=== PATIENT | male | born 1950 | race Caucasian/White ===

== ENCOUNTER 2024-08-25 13:49 | Emergency (ER) | payer OTHER ==
[~2024-08-25] VITALS: Ht 190.5 cm; Wt 103.4 kg
[2024-08-25] MEDS: ketOROlac 30MG VIAL (30MG/ML) IVP ONE (15:18)
[2024-08-25] MEDS: 0.9%NACL 1000ML 1,000 ML IV ONE (15:18)
[2024-08-25 15:37] LABS: BASOPHILS # (AUTO) 0.03 K/uL (0.00-0.20); BASOPHILS % (AUTO) 0.2 % (0.0-5.0); HEMATOCRIT 46.3 % (42-54); IMMATURE GRANULOCYTE ABSOLUTE 0.08 K/uL (0-1); LYMPHOCYTES # (AUTO) 0.9 K/uL (1.0-4.8); MEAN CORPUSCULAR HEMOGLOBIN 32.1 pg (27.0-33.0); MEAN CORPUSCULAR HGB CONC 34.8 g/dL (32.0-36.0); MEAN CORPUSCULAR VOLUME 92.4 fL (79-99); MONOCYTES # (AUTO) 1.4 K/uL (0.1-1.0); MONOCYTES % (AUTO) 9.4 % (3.0-13.0); NEUTROPHILS # (AUTO) 12.7 K/uL (1.8-7.7); NEUTROPHILS % (AUTO) 83.9 % (40.0-77.0); PLATELET COUNT (AUTO) 147 K/uL (130-400); RED BLOOD CELL COUNT(AUTO) 5.01 MIL/uL (4.50-6.20); RED CELL DISTRIBUTION WIDTH 12.4 % (11.0-15.5); WHITE BLOOD COUNT (AUTO) 15.1 K/uL (4.8-10.8)
[2024-08-25 15:46] LABS: POTASSIUM 3.5 mmol/L (3.5-5.1)
[2024-08-25] MEDS: CEFTRIAXONE 2GM VIAL IVPB ONE (16:04)
[2024-08-25 16:35] LABS: APPEARANCE,URINE CLEAR (CLEAR); BILIRUBIN,URINE NEGATIVE (NEGATIVE); COLOR,URINE LIGHT-YELLOW (YELLOW); GLUCOSE, URINE (UA) >=1000 mg/dL (NEGATIVE); KETONES,URINE 60 mg/dL (NEGATIVE); LEUKOCYTE ESTERASE ,URINE 250 Leu/uL (NEGATIVE); NITRATE,URINE NEGATIVE (NEGATIVE); OCCULT BLOOD,URINE SMALL (NEGATIVE); PROTEIN,URINE NEGATIVE (NEGATIVE); UROBILINOGEN,URINE 0.2 mg/dL (0.2-1.0)
[2024-08-25 16:36] LABS: ADD UA MICROSCOPIC YES
[2024-08-25 16:40] LABS: BACTERIA,URINE None Seen /HPF (None Seen); WBC,URINE 26-50 /HPF (0-1)
[2024-08-25 16:41] LABS: MUCUS,URINE Rare LPF (None Seen); SQUAMOUS EPITHELIAL CELL,UR Rare /HPF (0-2)
[2024-08-25] MEDS ORDERED: AMOX1TAB16 PO (16:53)
[2024-08-25] MEDS ORDERED: IBUP-2071 PO (16:53)
[2024-08-25] MEDS ORDERED: PHEN-776 PO (16:53)
[2024-08-25 17:23] VITALS: BP 144/70; PULSE 80; RESP 16; TEMP 99.6; O2SAT 97
== END 2024-08-25 17:24 | disposition home or self-care (01) ==
LOC: EDH 13:49
DX: N30.01 Acute cystitis with hematuria (principal); N20.0 Calculus of kidney; N23 Unspecified renal colic; E11.65 Type 2 diabetes mellitus with hyperglycemia; I10 Essential (primary) hypertension; E78.00 Pure hypercholesterolemia, unspecified; Z90.49 Acquired absence of other specified parts of digestive tract
CPT/HCPCS: 99285; 74176; 96365; 96361; 96375; 80048; 85025; 87086 ×2; 87186; 81001; 36415; J7030; J0696; J1885

== ENCOUNTER 2024-09-19 10:41 | Emergency (ER) | payer OTHER, MEDICARE ==
[~2024-09-19] VITALS: Ht 190.5 cm; Wt 100.2 kg
[~2024-09-19 10:41] MED LIST: AMOX1TAB16 PO; IBUP-2071 PO; PHEN-776 PO
--- NOTE | 2024-09-19 10:48 | ERN ---
General Stated Complaint: [facility] [place] [facility] Time Seen by MD: 10:42 Time Seen by Midlevel: 10:42 Source: patient History of Present Illness Initial Comments Patient is a 74-year-old male presenting to the emergency department with dysuria/hematuria. [place] for possible [place] after his culture came back positivbe for E coli. Patient was seen in our emergency department earlier this month where [place] [id number] and a urinary tract infection. He was given antibiotics in the emergency department and sent home with Augmentin. He followed up with his primary care doctor because his symptoms did not resolve. He was placed on Macrobid and discharged home. His culture came back positive for E coli yesterday so patient was sent here for further evaluation. On arrival patient reports having right flank pain. He denies any fever chills, or any other symptoms at this time. Allergies: Coded Allergies: No Known Allergies (Unverified Allergy, Unknown, 08/25/24) Home Meds Active Scripts Ibuprofen (Ibuprofen) 800 Mg Tablet, 800 MG PO Q6H PRN for PAIN, #30 TAB Prov:JIN OH NP 08/25/24 Phenazopyridine HCl (Pyridium) 200 Mg Tablet, 200 MG PO TID for painful urination for 3 Days, #9 TAB 0 Refills Prov:JIN OH NP 08/25/24 Amoxicillin/Potassium Clav (Amox Tr-K Clv 875-125 mg Tab) 875 Mg-125 Mg Tablet, 1 EACH PO BID for 7 Days, #14 TAB 0 Refills Prov:JIN OH NP 08/25/24 Reported Medications Carboxymethyl/Glycerin/Poly80 (Refresh Optive Advanced Drops) 0.5 %-1 %-0.5 % Drops, 1 DROP OP QID, #120 ML 0 Refills 09/19/24 Rosuvastatin Calcium (Rosuvastatin Calcium) 10 Mg Tablet, 10 MG PO DAILY, TAB 09/19/24 Empagliflozin (Jardiance) 25 Mg Tablet, 1 TAB PO DAILY for 30 Days, #30 TAB 0 Refills 09/19/24 Losartan Potassium (Losartan Potassium) 50 Mg Tablet, 1 TAB PO DAILY for 30 Days, #30 TAB 0 Refills 09/19/24 Past Medical History Past Medical History: Diabetes-Type II, High Cholesterol, Hypertension, Renal Disese Past Surgical History: Appendectomy ROS Dictation CONSTITUTIONAL: Negative except for HPI HEAD/FACE: Negative except for HPI EENT: Negative except for HPI RESPIRATORY: Negative except for HPI GASTROINTESTINAL/ABDOMINAL: Negative except for HPI GENITOURINARY: Negative except for HPI MUSCULOSKELETAL: Negative except for HPI INTEGUMENTARY: Negative except for HPI NEUROLOGICAL/PSYCH: Negative except for HPI HEMATOLOGIC/LYMPHATIC: Negative except for HPI All Systems Negative, Except as noted above. 13 point review of systems assessed and all negative except for above. Physical Exam Physical Exam Dictation Vital Signs reviewed General Appearance: Alert, oriented x 3, no acute distress, well developed, nourished. Head and Face: non-traumatic. Eyes: PERRL, pink conjunctivas, eyelid no trauma, anterior chamber with arcus senilis. Ears: Pinnas intact and no signs of trauma or erythema ear canals clear and no discharge TM no erythema Nose: No discharge, no bleeding. Oropharynx: Mouth normal, tongue pink, pharynx clear,no erythema, tonsils no exudates, no abscesses noted, mucous membrane moist Neck: Supple, non-tender, no thyromegaly, no masses, no JVD, no bruits Breast:Deferred Chest:No tenderness, no crepitus, no paradoxical movement, no retractions Lungs:Clear, well-ventilated, symmetric, no rales, no wheezing, no rhonchi, no stridor, good breath sounds bilaterally Heart: Regular rate, regular rhythm, no murmur, no gallops Vascular: no peripheral edema, Abdomen: Soft, positive bowel sounds, nondistended, no guarding, Right CVA tenderness, no rebound, no masses no hepatomegaly, no splenomegaly, no Bustillo's sign, no hernias. Rectal: Deferred Genital: Deferred Neurological: Normal speech, motor function intact, sensory function intact Musculoskeletal: Neck nontender, full range of motion, back nontender, full range of motion, Extremities: nontender, full range of motion Skin: Color pink, dry, no turgor, no rash, no lacerations, no abrasions, no contusions. Lymphatic: Deferred Results Laboratory and Microbiology Lab and Micro Result Laboratory Tests Test 09/19/24 10:59 09/19/24 11:01 White Blood Count 7.8 K/uL (4.8-10.8) Red Blood Count 4.59 MIL/uL (4.50-6.20) Hemoglobin 14.4 g/dL (14.0-18.0) Hematocrit 42.0 % (42-54) Mean Corpuscular Volume 91.5 fL (79-99) Mean Corpuscular Hemoglobin 31.4 pg (27.0-33.0) Mean Corpuscular Hemoglobin Concent 34.3 g/dL (32.0-36.0) Red Cell Distribution Width 12.4 % (11.0-15.5) Platelet Count 181 K/uL (130-400) Mean Platelet Volume 11.2 fL (7.5-10.5) H Immature Granulocyte % (Auto) 0.6 % (0-1) Neutrophils (%) (Auto) 79.9 % (40.0-77.0) H Lymphocytes (%) (Auto) 6.1 % (21.0-51.0) L Monocytes (%) (Auto) 7.5 % (3.0-13.0) Eosinophils (%) (Auto) 5.5 % (0.0-8.0) Basophils (%) (Auto) 0.4 % (0.0-5.0) Neutrophils # (Auto) 6.3 K/uL (1.8-7.7) Lymphocytes # (Auto) 0.5 K/uL (1.0-4.8) L Monocytes # (Auto) 0.6 K/uL (0.1-1.0) Eosinophils # (Auto) 0.43 K/uL (0.00-0.70) Basophils # (Auto) 0.03 K/uL (0.00-0.20) Absolute Immature Granulocyte (auto 0.05 K/uL (0-1) Nucleated Red Blood Cells 0.0 % (0.0-0.19) White Cell Morphology Comment See comments Sodium Level 132 mmol/L (136-145) L Potassium Level 3.8 mmol/L (3.5-5.1) Chloride Level 98 mmol/L (101-111) L Carbon Dioxide Level 26 mmol/L (21-32) Blood Urea Nitrogen 14 mg/dL (7-18) Creatinine 1.0 mg/dL (0.5-1.3) Glomerular Filtration Rate Calc 78 mL/min (>90) Random Glucose 208 mg/dL (70-105) H Lactic Acid Level 1.8 mmol/L (0.8-2.5) Total Calcium 8.9 mg/dL (8.5-10.1) Procalcitonin 0.25 ng/mL (0.05-0.5) Urine Color YELLOW (YELLOW) Urine Appearance CLEAR (CLEAR) Urine pH 5.5 (5.0-8.0) Urine Specific [place] 1.022 (1.001-1.031) Urine Protein 10 mg/dL (NEGATIVE) H Urine Glucose (UA) >=1000 mg/dL (NEGATIVE) H Urine Ketones 5 mg/dL (NEGATIVE) H Urine Occult Blood MODERATE (NEGATIVE) H Urine Nitrate NEGATIVE (NEGATIVE) Urine Bilirubin NEGATIVE mg/dL (NEGATIVE) Urine Urobilinogen 0.2 mg/dL (0.2-1.0) Urine Leukocyte Esterase NEGATIVE Mary/uL Urine RBC 6-10 /HPF (0-1) H Urine WBC 11-25 /HPF (0-1) H Urine Bacteria None /HPF (None Seen) Labs Reviewed?: Yes MDM MDM: Patient is a 74-year-old male presenting to the emergency department with dysuria/hematuria. [place] for [place] after his culture came back positivbe for E coli. Patient was seen in our emergency department earlier this month where [place] [id number] and a urinary tract infection. He was given antibiotics in the emergency department and sent home with Augmentin. He followed up with his primary care doctor because his symptoms did not resolve. He was placed on Macrobid and discharged home. His culture came back positive for E coli yesterday so patient was sent here for further evaluation. On arrival patient reports having right flank pain. He denies any fever chills, or any other symptoms at this time. On physical examination patient is in no acute distress. He does have right CVA tenderness. His abdominal examination is benign. There was no rebound or guarding. CBC does not show any leukocytosis. His chemistries are stable. His urinalysis shows moderate occult blood along with positive WBCs and urine RBCs. A CT scan of the abdomen pelvis without contrast was ordered which reveals bilateral kidney stones largest on the left measuring 7 x 15 mm, there was no evidence of obstruction. Otherwise CT abdomen and pelvis are unremarkable. The kidney stones are in a middle pole calyx bilaterally. These are nonobstructing. There was no evidence of pyelonephritis. The original plan was to admit the patient to our facility for IV antibiotics. The patient was started on meropenem. The case was discussed with the hospitalist on-call who states he does not feel comfortable admitting this patient is since we do not have Urology Service the remainder of the month. I do not believe patient needs emergent intervention for his bilateral nonobstructing renal stones. Transfer was initiated so patient can be sent to a hospital with higher level of care that has Urology. The case was discussed with ER doctor over at [facility] who agrees to accept the patient. Differential diagnosis: Complicated urinary tract infection, pyelonephritis, renal stone Rationale: Tests considered and ordered secondary to shared decision making include: Previous outside records reviewed: Old ER visits. Risk of complication and/or morbidity or mortality of patient management: None Medications-Per medication reconciliation Need for hospitalization: Patient does meet criteria for hospitalization. Need for emergency major/minor surgery: No There are no social concerns with this patient. Prescription drug management Prescriptions will include symptomatic care Patient's prior external medical records from other ER visits were reviewed by me as indicated. Prior testing and results from previous visits were reviewed. Prior tests were taken into account with medical decision making and resource utilization, independent historian/historians were used to obtain complete medical history. I independently interpreted the test that were performed, results were reviewed by me and considered findings on radiology if ordered. Medical management and examination interpretation discussions were had by me with other qualified healthcare professionals as indicated for the patient's care. ED Course Orders Procedure Category Date Status Time 12 Lead Ekg Tracing- EKG 09/19/24 Resulted Technical 10:44 Cbc With Differential LAB 09/19/24 Complete 10:44 Basic Metabolic Panel LAB 09/19/24 Complete 10:44 Lactic Acid LAB 09/19/24 Complete 10:44 Procalcitonin LAB 09/19/24 Complete 10:44 Urinalysis Profile LAB 09/19/24 Complete 10:44 Blood Cult ADAIR 09/19/24 In Process 10:44 0.9%Nacl 1000ml (Ns PHA 09/19/24 Complete 1000ml) 11:30 Meropenem (Merrem) PHA 09/19/24 Complete 12:00 Compound Iv Misc PHA 09/19/24 Complete (Compound Iv Misc) 12:00 Meropenem (Merrem) PHA 09/19/24 Complete 11:49 Culture Urine ADAIR 09/19/24 Complete 12:28 Ct Abdomen/Pelvis W/O CT 09/19/24 Resulted Contrast 13:04 Current Medications Medications (Trade) Dose Ordered Sig/Ros Route PRN Reason Start Time Stop Time Status Last Admin Dose Admin Meropenem (Merrem) 1 gm STK-MED ONCE .ROUTE 09/19/24 11:49 09/19/24 11:50 DC Meropenem 1 gm/ Sodium Chloride 100 ml @ 33.333 mls/ hr Q8H IVPB 09/19/24 12:00 09/19/24 17:57 DC 09/19/24 11:51 Sodium Chloride 1,000 ml @ 0 mls/hr ONCE ONCE IV 09/19/24 11:30 09/19/24 11:31 DC 09/19/24 11:14 Vital Signs Date Time Temp Pulse Resp B/P (MAP) Pulse Ox O2 Delivery O2 Flow Rate FiO2 09/19/24 16:15 82 14 144/75 95 Room Air* 0 21 09/19/24 12:10 93 12 130/66 95 Room Air* 0 21 09/19/24 10:49 98.1 70 16 121/71 98 Room Air 0 09/19/24 10:49 98.1 80 16 120/71 100 Room Air* 0 21 [place] [address] IMAGING REPORT Signed PATIENT: KP KNOTT MR#: [id number] : 1950 SEX: M AGE: 74 LOCATION: [facility] ORDER 1305 STATUS: REG ER REPORT#: [id number] SERVICE 1304 REASON: dysuria/hematuria ORDERING PHYSICIAN: JANIE RODRIGUEZ PROCEDURE: ABD PEL WO - CT ABDOMEN/PELVIS W/O CONTRAST CT ABDOMEN/PELVIS W/O CONTRAST REASON: dysuria/hematuria COMPARISON: None. FINDINGS: Lung bases are clear. There are no focal liver lesions. The liver does not appear enlarged.. Spleen and pancreas appear unremarkable. The gallbladder appears normal as well. There is a 4 mm stone middle pole calyx right kidney without obstruction. There is a 7 x 15 mm stone in a middle pole calyx on the left. There is no mass, hydronephrosis or ureteral calculus. Bowel loops appear unremarkable. This includes normal appearance of the appendix There is no evidence of free fluid or intraperitoneal air. There are no focal fluid collections. Aorta and retroperitoneum appear normal as do pelvic soft tissue structures. The anterior abdominal wall is intact. Osseous structures appear unremarkable. IMPRESSION: 1. Bilateral kidney stones, largest is on the left measuring 7 x 15 mm, there is no evidence of obstruction. 2. Otherwise unremarkable CT abdomen and pelvis. CT was performed with one or more following dose reduction techniques: automated exposure control, adjustment of the mA and kv according to patient's size, or use of a iterative reconstruction technique. DICTATED BY: NICOLETTE BOBBY MD DATE: 09/19/24 1331 ELECTRONICALLY SIGNED BY: NICOLETTE BOBBY MD DATE: 09/19/24 1335 DX & DISP Disposition: Transfer Departure Impression: Primary Impression: Complicated urinary tract infection Additional Impressions: Hematuria, ESBL (extended spectrum beta-lactamase) producing bacteria infection Condition: Stable Referrals: SELF,REFERRAL (PCP) I have reviewed the case, and I agree with, Diagnosis and Plan I performed the substantive portion of the visit. I have reviewed and personally made and approve the management plan that is documented in the note by myself or the SHAHID. I acknowledge for responsibility for the patient's management plan. JANIE RODRIGUEZ Sep 19, 2024 10:48 MARCE BASURTO DO Sep 21, 2024 09:09
[2024-09-19 10:49] VITALS: TEMP 98.1
--- NOTE | 2024-09-19 11:04 | EKG ---
[facility] Test Date: 2024-09-19 Test Time: 10:51:38 Pat Name: KP KNOTT Department: ED Room: Gender: M Boiler Helper: [id number] : 1950 Requested By: JANIE RODRGIUEZ Order Number: [id number] Reading MD: Aiden Sams Measurements Intervals [place] Rate: 103 P: 72 ND: 165 QRS: 47 QRSD: 94 T: 30 QT: 328 QTc: 431 Interpretive Statements Sinus tachycardia No previous ECG available for comparison Electronically Signed On 09-19-2024 15:16:02 DOLL DRESSER by Aiden Sams Please click the below link to view image of tracing.
[2024-09-19] MEDS: 0.9%NACL 1000ML 1,000 ML IV ONE (11:14)
[2024-09-19 11:25] LABS: POTASSIUM 3.8 mmol/L (3.5-5.1)
[2024-09-19 11:40] LABS: BASOPHILS # (AUTO) 0.03 K/uL (0.00-0.20); BASOPHILS % (AUTO) 0.4 % (0.0-5.0); EOSINOPHILS # (AUTO) 0.43 K/uL (0.00-0.70); EOSINOPHILS % (AUTO) 5.5 % (0.0-8.0); IMMATURE GRANULOCYTE ABSOLUTE 0.05 K/uL (0-1); LYMPHOCYTES # (AUTO) 0.5 K/uL (1.0-4.8); LYMPHOCYTES % (AUTO) 6.1 % (21.0-51.0); MEAN CORPUSCULAR HEMOGLOBIN 31.4 pg (27.0-33.0); MEAN CORPUSCULAR HGB CONC 34.3 g/dL (32.0-36.0); MEAN CORPUSCULAR VOLUME 91.5 fL (79-99); MONOCYTES # (AUTO) 0.6 K/uL (0.1-1.0); MONOCYTES % (AUTO) 7.5 % (3.0-13.0); NEUTROPHILS # (AUTO) 6.3 K/uL (1.8-7.7); NEUTROPHILS % (AUTO) 79.9 % (40.0-77.0); PLATELET COUNT (AUTO) 181 K/uL (130-400); RED BLOOD CELL COUNT(AUTO) 4.59 MIL/uL (4.50-6.20); RED CELL DISTRIBUTION WIDTH 12.4 % (11.0-15.5); WHITE BLOOD COUNT (AUTO) 7.8 K/uL (4.8-10.8)
[2024-09-19] MEDS: MEROPENEM 1 GM in 0.9%NACL 100ML 100 ML IVPB SCH (11:51)
[2024-09-19] MEDS: MEROPENEM 1 GM VIAL ONE (11:51)
[2024-09-19] MEDS ORDERED: COMPOUND IV MISC 1 EACH IVSOLN MISC PRN (12:00)
[2024-09-19 12:23] LABS: APPEARANCE,URINE CLEAR (CLEAR); BILIRUBIN,URINE NEGATIVE (NEGATIVE); COLOR,URINE YELLOW (YELLOW); GLUCOSE, URINE (UA) >=1000 mg/dL (NEGATIVE); KETONES,URINE 5 mg/dL (NEGATIVE); LEUKOCYTE ESTERASE ,URINE NEGATIVE Leu/uL (NEGATIVE); NITRATE,URINE NEGATIVE (NEGATIVE); OCCULT BLOOD,URINE MODERATE (NEGATIVE); PH,URINE 5.5 (5.0-8.0); PROTEIN,URINE 10 mg/dL (NEGATIVE); UROBILINOGEN,URINE 0.2 mg/dL (0.2-1.0)
[2024-09-19 12:25] LABS: ADD UA MICROSCOPIC YES
[2024-09-19 12:28] LABS: MUCUS,URINE RARE LPF (None Seen)
--- NOTE | 2024-09-19 12:48 | NUR ---
INFECTIOUS DISEASE CONSULT: DR LIVINGSTON MADE AWARE OF CONSULT
[2024-09-19] MEDS ORDERED: CARB10DR OP (13:07)
[2024-09-19] MEDS ORDERED: EMPA25TA PO (13:07)
[2024-09-19] MEDS ORDERED: ROSU10TA72 PO (13:07)
[2024-09-19] MEDS ORDERED: LOSA50TA64 PO (13:07)
--- NOTE | 2024-09-19 13:35 | HMCIMG ---
CT ABDOMEN/PELVIS W/O CONTRAST REASON: dysuria/hematuria COMPARISON: None. FINDINGS: Lung bases are clear. There are no focal liver lesions. The liver does not appear enlarged.. Spleen and pancreas appear unremarkable. The gallbladder appears normal as well. There is a 4 mm stone middle pole calyx right kidney without obstruction. There is a 7 x 15 mm stone in a middle pole calyx on the left. There is no mass, hydronephrosis or ureteral calculus. Bowel loops appear unremarkable. This includes normal appearance of the appendix There is no evidence of free fluid or intraperitoneal air. There are no focal fluid collections. Aorta and retroperitoneum appear normal as do pelvic soft tissue structures. The anterior abdominal wall is intact. Osseous structures appear unremarkable. IMPRESSION: 1. Bilateral kidney stones, largest is on the left measuring 7 x 15 mm, there is no evidence of obstruction. 2. Otherwise unremarkable CT abdomen and pelvis. CT was performed with one or more following dose reduction techniques: automated exposure control, adjustment of the mA and kv according to patient's size, or use of a iterative reconstruction technique.
--- NOTE | 2024-09-19 15:13 | NUR ---
TRANSFER OUT REQUEST FOR UROGOLGY AND INFECTIONS DISEASE CALL PLACE TO [facility] SPOKE TO FADIA INFORMATION GIVEN AND WILL CALL BACK. DR LIVINGSTON WILL ACCEPT VIN GORDON RN
--- NOTE | 2024-09-19 15:50 | NUR ---
TRANSFER INTAKE NURSE CALL BACK WITH ACCEPTANCE UNDER DOCTOR HERMANN CAPONE TO ER AND PRIMARY NURSE TO CALL REPORT TO [phone] AND EMS WHEN READY. EVAN VELIZ
[2024-09-19 16:15] VITALS: BP 144/75; PULSE 82; RESP 14; O2SAT 95
--- NOTE | 2024-09-19 17:09 | NUR ---
PATIENT REPORT GIVEN TO NURSE YURIDIA Corona [facility] [place] ER
--- NOTE | 2024-09-19 17:11 | NUR ---
[facility] NOTIFIED OF TRANSFER
== END 2024-09-19 17:56 | disposition short-term general hospital (02) ==
LOC: EDH 10:41
DX: N39.0 Urinary tract infection, site not specified (principal); R31.9 Hematuria, unspecified; B96.89 Other specified bacterial agents as the cause of diseases classified elsewhere; E11.9 Type 2 diabetes mellitus without complications; E78.00 Pure hypercholesterolemia, unspecified; I10 Essential (primary) hypertension; Z79.84 Long term (current) use of oral hypoglycemic drugs; Z79.899 Other long term (current) drug therapy; Z90.49 Acquired absence of other specified parts of digestive tract
CPT/HCPCS: 99285; 74176; 96365; 96366; 96361; 80048; 85025; 87040 ×2; 87086; 83605; 81001; 36415; 93005; 84145; J2185 ×2